=== PATIENT | male | born 1955 | race Caucasian/White ===

== ENCOUNTER 2021-05-11 19:42 | Emergency (ER) | payer MEDICARE, OTHER ==
[2021-05-11 21:26] LABS: BASOPHIL 0.6 % (0-2); HCT 39.1 % (42.0-52.0); HGB 13.5 g/dl (13.2-18.0); LYMPHOCYTE 9.9 % (15-48); MCH 28.6 pg (25.0-31.0); MCHC 34.5 g/dL (32.0-36.0); MCV 82.8 fL (78.0-100.0); MONOCYTE 4.9 % (0-12); MPV 8.8 fL (6.0-9.5); NEUTROPHIL 83.4 % (41-80); PLT 362 K/uL (150-400); RBC 4.72 M/uL (4.70-6.00); RDW 12.8 % (11.5-14.0); WBC 10.31 K/uL (4.0-10.5)
[2021-05-11 21:47] LABS: LACTIC ACID 1.2 mmol/L (0.4-1.9)
[2021-05-11 22:23] LABS: ALBUMIN 4.2 g/dL (3.4-5.0); BILIRUBIN - TOTAL 1.6 mg/dL (0.2-1.0); BUN/CREAT RATIO (CALC) 9.3 RATIO; CREATININE 1.61 mg/dL (0.67-1.17); GLOBULIN (CALCULATION) 3.4 g/dL; MAGNESIUM 2.3 mg/dL (1.8-2.4); POTASSIUM 4.1 mmol/L (3.5-5.1); TOTAL PROTEIN 7.6 g/dL (6.4-8.2)
[2021-05-11] MEDS ORDERED: AUGMENTIN 875-1 EACH PO (23:05)
[2021-05-11 23:24] LABS: BILIRUBIN NEGATIVE (NEGATIVE); BLOOD NEGATIVE Ery/uL (NEGATIVE); CLARITY CLEAR (CLEAR); COLOR YELLOW (YELLOW); GLUCOSE (U) NORMAL (NORMAL); LEUKOCYTES NEGATIVE Leu/uL (NEGATIVE); NITRITE NEGATIVE (NEGATIVE); PROTEIN NEGATIVE (NEGATIVE); UROBILINOGEN 0.2 mg/dL (0.2-1.0)
== END 2021-05-11 22:55 | disposition home or self-care (01) ==
LOC: FER 19:42
PROVIDERS: Emergency Medicine Emergency Medical Services
DX: T67.2XXA Heat cramp, initial encounter (principal); T67.5XXA Heat exhaustion, unspecified, initial encounter; I10 Essential (primary) hypertension; Z88.4 Allergy status to anesthetic agent; Z79.899 Other long term (current) drug therapy; X30.XXXA Exposure to excessive natural heat, initial encounter
CPT/HCPCS: 36415; 70450; 71045; 80053; 81003; 82550; 83605; 83690; 83735; 84100; 84484; 85025; 87040; 93005; J2270; J2405; J7120